=== PATIENT | female | born 1975 | race Caucasian/White ===

== ENCOUNTER 2018-03-10 12:15 | Emergency (ER) | payer SELFPAY ==
[~2018-03-10] VITALS: Ht 170.2 cm; Wt 69.9 kg
[2018-03-10 12:33] VITALS: BP 125/83
[2018-03-10] MEDS ORDERED: KETOROLAC TROMETH 60MG/2ML VIAL IM ONE (14:15)
== END 2018-03-10 14:41 | disposition home or self-care (01) ==
LOC: ER 12:42
DX: S39.012A Strain of muscle, fascia and tendon of lower back, initial encounter (principal); Z86.73 Personal history of transient ischemic attack (TIA), and cerebral infarction without residual deficits; W18.09XA Striking against other object with subsequent fall, initial encounter; Y93.84 Activity, sleeping; Y92.89 Other specified places as the place of occurrence of the external cause; Y99.8 Other external cause status
CPT/HCPCS: 72100; 96372; 99283; J1885